=== PATIENT | female | born 1975 | race Caucasian/White ===

== ENCOUNTER 2021-10-27 13:09 | Emergency (ER) | payer OTHER ==
[~2021-10-27] VITALS: Ht 165.1 cm; Wt 104.3 kg
[~2021-10-27 13:09] MED LIST: ALEVE220 MG PO; AMOXICILLIN500 M2 PO; AMOXICILLIN500 MG PO; BACTROBAN OINT22 GM PO; BISMUTH SUBSALICYLATE PO; CIPRO500 MG PO; FLAGYL500 MG PO; MOTRIN800 MG PO; MULTIPLE VITAMI1 CAP PO; PREDNISONE10 MG PO; PREDNISONE20 M1 PO; ROBITUSSIN AC 110 ML PO; SLO FE; ZYRTEC10 MG PO
[2021-10-27 13:14] VITALS: BP 135/76
[2021-10-27] MEDS ORDERED: BENZONATATE100 M1 PO (15:27)
[2021-10-27] MEDS ORDERED: NAPROXEN250 MG PO (15:27)
[2021-10-27] MEDS ORDERED: TYLENOL325 M1 PO (15:27)
[2021-10-27] MEDS ORDERED: CYCLOBENZAPRINE10 MG PO (15:27)
[2021-10-27] MEDS ORDERED: POLYTRIM 1000010 M1 OPH (15:27)
[2021-10-27] MEDS ORDERED: AUGMENTIN 875-875 MG PO (15:27)
== END 2021-10-27 15:35 | disposition home or self-care (01) ==
LOC: ED 13:09
DX: S05.91XA Unspecified injury of right eye and orbit, initial encounter (principal); Z20.822 Contact with and (suspected) exposure to COVID-19; L03.213 Periorbital cellulitis; R59.0 Localized enlarged lymph nodes; Z88.1 Allergy status to other antibiotic agents; Z98.51 Tubal ligation status; Z90.89 Acquired absence of other organs; W51.XXXA Accidental striking against or bumped into by another person, initial encounter; Y93.89 Activity, other specified; Y92.89 Other specified places as the place of occurrence of the external cause; Y99.8 Other external cause status

== ENCOUNTER 2022-07-12 01:12 | Emergency (ER) | payer OTHER ==
[~2022-07-12] VITALS: Ht 162.5 cm; Wt 113.4 kg
[~2022-07-12 01:12] MED LIST changes: +AUGMENTIN 875-875 MG PO; +BENZONATATE100 M1 PO; +CYCLOBENZAPRINE10 MG PO; +NAPROXEN250 MG PO; +POLYTRIM 1000010 M1 OPH; +TYLENOL325 M1 PO
[2022-07-12 01:32] VITALS: BP 114/47
== END 2022-07-12 02:42 | disposition left against medical advice (07) ==
LOC: ED 01:12
DX: N61.0 Mastitis without abscess (principal); Z88.1 Allergy status to other antibiotic agents; Z88.8 Allergy status to other drugs, medicaments and biological substances; Z98.51 Tubal ligation status; Z98.890 Other specified postprocedural states

== ENCOUNTER → 2022-09-24 | Outpatient (CLI) | payer OTHER | END | disposition home or self-care (01) | LOC: RAD 16:45 | PROVIDERS: ATTEND Nurse Practitioner Family | DX: R05.1 Acute cough (principal) ==